=== PATIENT | female | born 1960 | race Caucasian/White ===

== ENCOUNTER 2021-03-02 13:53 | Outpatient (CLI) | payer OTHER | END 2021-03-02 13:54 | disposition home or self-care (01) | LOC: CSHMRI 13:53 | PROVIDERS: ATTEND Nurse Practitioner Family | DX: M54.12 Radiculopathy, cervical region (principal); M47.812 Spondylosis without myelopathy or radiculopathy, cervical region; M48.02 Spinal stenosis, cervical region | CPT/HCPCS: 72052; 72141 ==

== ENCOUNTER 2021-05-18 14:37 | Outpatient (CLI) | payer OTHER | END 2021-05-18 14:38 | disposition home or self-care (01) | LOC: CSHULT 14:37 | PROVIDERS: ATTEND Internal Medicine | DX: Z12.2 Encounter for screening for malignant neoplasm of respiratory organs (principal); F17.210 Nicotine dependence, cigarettes, uncomplicated; N39.0 Urinary tract infection, site not specified; J44.9 Chronic obstructive pulmonary disease, unspecified; N28.1 Cyst of kidney, acquired | CPT/HCPCS: 71271; 76770 ==

== ENCOUNTER 2022-06-11 05:41 | Day surgery (SDC) | payer OTHER ==
[2022-06-08 13:21] VITALS: BMI 25.7
[2022-06-11] MEDS ORDERED: PROPOFOL 20 ML ONE ×2 (07:06)
[2022-06-11] MEDS ORDERED: Lidocaine 1% PF 5 ML VIAL ONE (07:07)
[2022-06-11] MEDS ORDERED: Ondansetron PF 4 MG/2 ML Vial ONE (07:59)
[2022-06-11] MEDS ORDERED: PROPOFOL 60 ML ONE (07:59)
== END 2022-06-11 10:18 | disposition home or self-care (01) ==
LOC: CSHSDC 05:41
PROVIDERS: ATTEND Internal Medicine Gastroenterology
PROC: 0DB68ZX Excision of Stomach, Via Natural or Artificial Opening Endoscopic, Diagnostic (ICD-10-PCS; principal; 2022-06-11)
PROC: 0DJD8ZZ Inspection of Lower Intestinal Tract, Via Natural or Artificial Opening Endoscopic (ICD-10-PCS; principal; 2022-06-11)
DX: K31.89 Other diseases of stomach and duodenum (principal); K21.9 Gastro-esophageal reflux disease without esophagitis; K44.9 Diaphragmatic hernia without obstruction or gangrene; K29.70 Gastritis, unspecified, without bleeding; K64.9 Unspecified hemorrhoids; J44.9 Chronic obstructive pulmonary disease, unspecified; I10 Essential (primary) hypertension; E78.5 Hyperlipidemia, unspecified; F41.9 Anxiety disorder, unspecified; F32.A Depression, unspecified; Z79.899 Other long term (current) drug therapy; Z91.048 Other nonmedicinal substance allergy status
CPT/HCPCS: 88305; J2405; J2704

== ENCOUNTER 2022-12-05 13:53 | Outpatient (CLI) | payer OTHER | END 2022-12-05 13:54 | disposition home or self-care (01) | LOC: CSHMAMMO 13:53 | PROVIDERS: ATTEND Internal Medicine | DX: Z12.31 Encounter for screening mammogram for malignant neoplasm of breast (principal); Z13.820 Encounter for screening for osteoporosis; M85.851 Other specified disorders of bone density and structure, right thigh; M85.852 Other specified disorders of bone density and structure, left thigh; Z78.0 Asymptomatic menopausal state; Z80.3 Family history of malignant neoplasm of breast; Z91.89 Other specified personal risk factors, not elsewhere classified; Z85.3 Personal history of malignant neoplasm of breast; Z90.12 Acquired absence of left breast and nipple | CPT/HCPCS: 77063; 77067; 77080 ==

== ENCOUNTER 2022-12-05 14:39 | Outpatient (CLI) | payer OTHER | END 2022-12-05 14:40 | disposition home or self-care (01) | LOC: CSHMRI 14:39 | PROVIDERS: ATTEND Specialist | DX: Z12.2 Encounter for screening for malignant neoplasm of respiratory organs (principal); F17.210 Nicotine dependence, cigarettes, uncomplicated; J44.9 Chronic obstructive pulmonary disease, unspecified; J98.4 Other disorders of lung; M50.11 Cervical disc disorder with radiculopathy, high cervical region; M48.02 Spinal stenosis, cervical region | CPT/HCPCS: 71271; 72141 ==

== ENCOUNTER 2023-12-24 13:45 | Outpatient (CLI) | payer OTHER | END 2023-12-24 13:46 | disposition home or self-care (01) | LOC: CSHMAMMO 13:45 | PROVIDERS: ATTEND Internal Medicine | DX: Z12.31 Encounter for screening mammogram for malignant neoplasm of breast (principal); Z91.89 Other specified personal risk factors, not elsewhere classified; Z90.12 Acquired absence of left breast and nipple; Z80.3 Family history of malignant neoplasm of breast; Z85.3 Personal history of malignant neoplasm of breast | CPT/HCPCS: 77063; 77067 ==

== ENCOUNTER 2024-10-21 09:54 | Outpatient (CLI) | payer OTHER | END 2024-10-21 09:55 | disposition home or self-care (01) | LOC: CSHSLEEP 09:54 | PROVIDERS: ATTEND Internal Medicine | DX: G47.33 Obstructive sleep apnea (adult) (pediatric) (principal); F32.A Depression, unspecified; F41.9 Anxiety disorder, unspecified; R06.83 Snoring; G47.00 Insomnia, unspecified; I10 Essential (primary) hypertension | CPT/HCPCS: 95810 ==

== ENCOUNTER 2024-11-24 08:50 | Outpatient (CLI) | payer OTHER | END 2024-11-24 08:51 | disposition home or self-care (01) | LOC: CSHSLEEP 08:50 | PROVIDERS: ATTEND Internal Medicine | DX: G47.33 Obstructive sleep apnea (adult) (pediatric) (principal); F32.A Depression, unspecified; F41.9 Anxiety disorder, unspecified; R06.83 Snoring; G47.00 Insomnia, unspecified; I10 Essential (primary) hypertension | CPT/HCPCS: 95811 ==